=== PATIENT | female | born 1980 | race Caucasian/White ===

== ENCOUNTER 2022-07-03 11:05 | Inpatient (IN) | payer BC, MEDICAID, OTHER ==
[2022-07-03] MEDS ORDERED: LORazepam 2 MG/ML 1ML VIAL IM STA (11:09)
[2022-07-03] MEDS ORDERED: HALOPERIDOL 5MG/ML 1ML VIAL IM ONE (11:10)
[2022-07-03] MEDS ORDERED: diphenhydrAMINE 50MG/ML VIAL IM ONE (11:10)
[2022-07-03 14:09] LABS: AMPHETAMINES LEVEL URINE NEGATIVE (NEGATIVE); BENZODIAZEPINES URINE NEGATIVE (NEGATIVE)
[2022-07-03 14:10] LABS: BARBITURATES URINE NEGATIVE (NEGATIVE); CANNABINOIDS URINE NEGATIVE (NEGATIVE); COCAINE METABOLITE URINE NEGATIVE (NEGATIVE); METHADONE URINE NEGATIVE (NEGATIVE); OPIATES URINE NEGATIVE (NEGATIVE); PHENCYCLIDINE URINE NEGATIVE (NEGATIVE)
[2022-07-03 14:37] LABS: HEMATOCRIT 38.2 % (36.0-47.0); HEMOGLOBIN 11.2 g/dl (12.0-15.5); MEAN CORPUSCULAR HEMOGLOBIN 21.6 pg (27.0-33.0); MEAN CORPUSCULAR HGB CONC 29.3 g/dl (32.0-36.5); MEAN CORPUSCULAR VOLUME 73.7 fl (80.0-96.0); PLATELET COUNT, AUTOMATED 146 10^3/uL (150-450); RED BLOOD COUNT 5.18 10^6/uL (4.00-5.40); WHITE BLOOD COUNT 4.9 10^3/uL (4.0-10.0)
[2022-07-03 15:03] LABS: ETHYL ALCOHOL (ETHANOL) < 0.003 % (0.000-0.010)
[2022-07-03 15:05] LABS: ACETAMINOPHEN LEVEL < 2.0 UG/ML (10.0-20.0); SALICYLATE LEVEL < 3.0 MG/DL (<30)
[2022-07-03 15:08] LABS: ALBUMIN 3.8 G/DL (3.2-5.2); ALKALINE PHOSPHATASE 54 U/L (46-116); ALT/SGPT 11 U/L (7.0-40); AST/SGOT 32 U/L (<34); BILIRUBIN,DIRECT 0.2 MG/DL (<0.4); BILIRUBIN,TOTAL 0.6 MG/DL (0.3-1.2); BLOOD UREA NITROGEN 7 MG/DL (9-23); CALCIUM LEVEL 9.1 MG/DL (8.5-10.1); CARBON DIOXIDE LEVEL 26 MMOL/L (20-31); CHLORIDE LEVEL 108 MMOL/L (98-107); CREATININE FOR GFR 0.71 MG/DL (0.55-1.30); GLOMERULAR FILTRATION RATE > 60.0 (>58); GLUCOSE, FASTING 77 MG/DL (60-100); POTASSIUM SERUM 4.7 MMOL/L (3.5-5.1); SODIUM LEVEL 141 MMOL/L (136-145); THYROID STIMULATING HORMONE 1.469 uIU/ML (0.55-4.78); TOTAL PROTEIN 6.6 G/DL (5.7-8.2)
[2022-07-04] MEDS ORDERED: OLANZapine ORAL DISINTEGRATING TAB 5MG PO ONE (17:05)
[2022-07-04] MEDS ORDERED: ARIP1TAB10 PO (20:26)
[2022-07-04] MEDS ORDERED: ALBU8.5H INH (20:27)
[2022-07-04] MEDS ORDERED: HOME MED LIST COMPLETE! XX SCH (20:30)
[2022-07-04] MEDS ORDERED: med rec comment (20:30)
[2022-07-05] MEDS: NICOTINE 21MG/24HR 1 EA TRANSDERMAL TD SCH (09:00)
[2022-07-05 09:56] LABS: HCG, SERUM QUALITATIVE NEGATIVE (NEGATIVE)
[2022-07-05] MEDS ORDERED: ALBUTEROL 90 MCG/ACT 8GM HFA INHALER INH PRN (12:10)
[2022-07-05] MEDS ORDERED: MOM 30ML SUSPENSION UDC PO PRN (12:10)
[2022-07-05] MEDS ORDERED: MAALOX 30 ML SUSP *UDC PO PRN (12:10)
[2022-07-05] MEDS ORDERED: IBUPROFEN 400MG TAB PO PRN (12:10)
[2022-07-05] MEDS ORDERED: traZODone 50 MG TAB PO PRN (12:10)
[2022-07-05 13:51] VITALS: BP 105/63
[2022-07-06] MEDS: NICOTINE 21MG/24HR 1 EA TRANSDERMAL TD SCH (09:00)
[2022-07-06] MEDS: ARIPiprazole 10 MG TAB PO SCH (09:00)
[2022-07-07] MEDS ORDERED: HALOPERIDOL 5MG/ML 1ML VIAL IM STA (08:45)
[2022-07-07] MEDS ORDERED: LORazepam 2 MG/ML 1ML VIAL IM STA (08:45)
[2022-07-07] MEDS ORDERED: diphenhydrAMINE 50MG/ML VIAL IM STA (08:45)
[2022-07-07] MEDS: NICOTINE 21MG/24HR 1 EA TRANSDERMAL TD SCH (09:00)
[2022-07-07] MEDS: ARIPiprazole 10 MG TAB PO SCH (09:00)
[2022-07-08] MEDS: NICOTINE 21MG/24HR 1 EA TRANSDERMAL TD SCH (09:00)
[2022-07-08] MEDS: ARIPiprazole 10 MG TAB PO SCH (09:00)
[2022-07-08] MEDS: LORazepam 1 MG TAB PO PRN (16:32)
[2022-07-09] MEDS: LORazepam 1 MG TAB PO PRN ×2 (08:30→14:28)
[2022-07-09] MEDS: ARIPiprazole 10 MG TAB PO SCH (09:00)
[2022-07-09] MEDS: NICOTINE 21MG/24HR 1 EA TRANSDERMAL TD SCH (09:00)
[2022-07-09] MEDS: CETIRIZINE (ZyrTEC) 10 MG TAB PO ONE ×2 (10:00→12:28)
[2022-07-09 15:53] VITALS: BP 109/70
[2022-07-10] VITALS (8 sets, daily range): BP systolic 85–103; BP diastolic 48–56
[2022-07-10] MEDS: diphenhydrAMINE 25MG CAP PO PRN (05:24)
[2022-07-10] MEDS: NICOTINE 21MG/24HR 1 EA TRANSDERMAL TD SCH (09:00)
[2022-07-10] MEDS: ARIPiprazole 10 MG TAB PO SCH (09:00)
[2022-07-10] MEDS ORDERED: LORazepam 2 MG/ML 1ML VIAL IM STA (09:46)
[2022-07-10] MEDS ORDERED: HALOPERIDOL 5MG/ML 1ML VIAL IM STA (09:46)
[2022-07-10] MEDS ORDERED: diphenhydrAMINE 50MG/ML VIAL IM STA (09:46)
[2022-07-11] MEDS: ARIPiprazole 10 MG TAB PO SCH (09:00)
[2022-07-11] MEDS ORDERED: ARIPiprazole MONOHYDRATE 400 MG INJ (ABILIFY)(FREE PSY INPT ONLY) IM SCH (09:00)
[2022-07-11] MEDS: NICOTINE 21MG/24HR 1 EA TRANSDERMAL TD SCH (09:00)
[2022-07-11] MEDS: LORazepam 1 MG TAB PO PRN ×2 (09:39→15:42)
[2022-07-11 18:20] VITALS: BP 99/61
[2022-07-12] MEDS: LORazepam 1 MG TAB PO PRN ×2 (01:48→09:32)
[2022-07-12 06:22] VITALS: BP 92/51
[2022-07-12] MEDS: NICOTINE 21MG/24HR 1 EA TRANSDERMAL TD SCH (09:00)
[2022-07-12] MEDS: diphenhydrAMINE 25MG CAP PO PRN (09:32)
[2022-07-12] MEDS: ARIPiprazole 10 MG TAB PO SCH (09:32)
[2022-07-12 09:44] LABS: HEMATOCRIT 36.7 % (36.0-47.0); MEAN CORPUSCULAR HEMOGLOBIN 22.1 pg (27.0-33.0); MEAN CORPUSCULAR VOLUME 73.8 fl (80.0-96.0); PLATELET COUNT, AUTOMATED 131 10^3/uL (150-450); RED BLOOD COUNT 4.97 10^6/uL (4.00-5.40); WHITE BLOOD COUNT 3.9 10^3/uL (4.0-10.0)
[2022-07-12 10:01] LABS: ERYTHROCYTE SEDIMENTATION RATE 3 mm/hr (0-20)
[2022-07-12 10:08] LABS: C REACTIVE PROTEIN QUANTITATIV < 0.40 MG/DL (<1.0)
[2022-07-12 10:12] LABS: ALBUMIN 3.4 G/DL (3.2-5.2); ALKALINE PHOSPHATASE 48 U/L (46-116); ALT/SGPT < 9 U/L (7.0-40); AST/SGOT 12 U/L (<34); BILIRUBIN,TOTAL 0.4 MG/DL (0.3-1.2); BLOOD UREA NITROGEN 12 MG/DL (9-23); CALCIUM LEVEL 8.5 MG/DL (8.5-10.1); CARBON DIOXIDE LEVEL 26 MMOL/L (20-31); CHLORIDE LEVEL 107 MMOL/L (98-107); CREATININE FOR GFR 0.73 MG/DL (0.55-1.30); GLOMERULAR FILTRATION RATE > 60.0 (>58); GLUCOSE, FASTING 101 MG/DL (60-100); POTASSIUM SERUM 4.1 MMOL/L (3.5-5.1); SODIUM LEVEL 140 MMOL/L (136-145)
[2022-07-12] MEDS ORDERED: diphenhydrAMINE CREAM 30GM TOP PRN (11:05)
[2022-07-12] MEDS: HYDROCORTISONE 1% CREAM 30GM TOP SCH ×2 (12:36→21:00)
[2022-07-12] MEDS: LORazepam 2 MG TAB PO PRN (16:03)
[2022-07-12 17:29] VITALS: BP 105/63
[2022-07-13] MEDS: LORazepam 2 MG TAB PO PRN ×2 (03:12→11:26)
[2022-07-13 06:41] VITALS: BP 98/55
[2022-07-13] MEDS: HYDROCORTISONE 1% CREAM 30GM TOP SCH ×3 (09:00→21:36)
[2022-07-13] MEDS: NICOTINE 21MG/24HR 1 EA TRANSDERMAL TD SCH (09:00)
[2022-07-13] MEDS ORDERED: ABIL400I IM (09:55)
[2022-07-13] MEDS ORDERED: HYDR1CR TOP (09:55)
[2022-07-14] MEDS: LORazepam 2 MG TAB PO PRN (05:07)
[2022-07-14 06:30] VITALS: BP 99/52
[2022-07-14] MEDS: NICOTINE 21MG/24HR 1 EA TRANSDERMAL TD SCH (08:09)
[2022-07-14] MEDS: HYDROCORTISONE 1% CREAM 30GM TOP SCH (08:12)
== END 2022-07-14 12:00 | disposition home or self-care (01) | DRG 753 ==
LOC: M ED 11:05 → M ED INP 07-05 12:09 → M PSY 07-05 13:47
PROVIDERS: ADMIT Student in an Organized Health Care Education/Training Program; ATTEND Psychiatry & Neurology Psychiatry
DX: F31.10 Bipolar disorder, current episode manic without psychotic features, unspecified (principal); D69.6 Thrombocytopenia, unspecified; Z78.1 Physical restraint status; Z65.3 Problems related to other legal circumstances; B35.1 Tinea unguium; R21 Rash and other nonspecific skin eruption; Z79.899 Other long term (current) drug therapy; Z20.822 Contact with and (suspected) exposure to COVID-19; Z91.040 Latex allergy status

== ENCOUNTER → 2022-08-25 | Outpatient (CLI) | payer MEDICAID ==
[~2022-08-25] MED LIST: ABIL400I IM; ALBU8.5H INH; ARIP1TAB10 PO; BENZ0.5T23 PO; CVS1CRE56 TOP; DEPA1TAB3 PO; DEPA250T32 PO; FERR325T3 PO; HALO5TAB33 PO; HYDR1CR TOP; med rec comment
== END ==
LOC: M OUTALCOH 07:36
PROVIDERS: ATTEND Psychiatry & Neurology Psychiatry
DX: F10.10 Alcohol abuse, uncomplicated (principal)

== ENCOUNTER → 2022-10-04 | Outpatient (RCR) | payer MEDICAID ==
[~2022-10-04] MED LIST changes: +BENZ0.5T2 PO; -BENZ0.5T23 PO
== END ==
LOC: M OUTALCOH 09-06 10:47
PROVIDERS: ATTEND Psychiatry & Neurology Psychiatry
DX: F10.10 Alcohol abuse, uncomplicated (principal); F17.200 Nicotine dependence, unspecified, uncomplicated

== ENCOUNTER 2022-10-18 10:32 | Outpatient (RCR) | payer MEDICAID | END 2022-11-03 | LOC: M OUTALCOH 10:32 | PROVIDERS: ATTEND Psychiatry & Neurology Psychiatry | DX: F10.10 Alcohol abuse, uncomplicated (principal); F17.200 Nicotine dependence, unspecified, uncomplicated ==

== ENCOUNTER 2022-11-23 10:57 | Outpatient (RCR) | payer MEDICAID | END 2022-12-04 | LOC: M OUTALCOH 10:57 | PROVIDERS: ATTEND Psychiatry & Neurology Psychiatry | DX: F10.10 Alcohol abuse, uncomplicated (principal); F17.200 Nicotine dependence, unspecified, uncomplicated ==

== ENCOUNTER → 2022-12-20 | Outpatient (CLI) | payer MEDICAID, OTHER ==
[2022-12-20 13:51] LABS: BASO % 0.6 % (0.0-1.0); EOS # 0.1 10^3/uL (0.0-0.5); HEMATOCRIT 40.5 % (36.0-47.0); HEMOGLOBIN 12.2 g/dl (12.0-15.5); LYMPH # 1.2 10^3/uL (1.5-5.0); MEAN CORPUSCULAR HEMOGLOBIN 23.9 pg (27.0-33.0); MEAN CORPUSCULAR HGB CONC 30.1 g/dl (32.0-36.5); MEAN CORPUSCULAR VOLUME 79.4 fl (80.0-96.0); MONO # 0.5 10^3/uL (0.0-0.8); MONO % 9.6 % (2.0-8.0); NEUTROPHILS # 3.2 10^3/uL (1.5-8.5); NEUTROPHILS % 64.6 % (36.0-66.0); PLATELET COUNT, AUTOMATED 177 10^3/uL (150-450)
[2022-12-20 14:16] LABS: VALPROIC ACID (DEPAKOTE) 59.3 UG/ML (50.0-100.0)
[2022-12-20 14:17] LABS: ALBUMIN 3.7 G/DL (3.2-5.2); ALKALINE PHOSPHATASE 52 U/L (46-116); ALT/SGPT 10 U/L (7.0-40); AST/SGOT < 8 U/L (<34); BILIRUBIN,TOTAL 0.3 MG/DL (0.3-1.2); BLOOD UREA NITROGEN 15 MG/DL (9-23); CALCIUM LEVEL 9.3 MG/DL (8.5-10.1); CARBON DIOXIDE LEVEL 27 MMOL/L (20-31); CHLORIDE LEVEL 107 MMOL/L (98-107); CHOLESTEROL LEVEL 186 MG/DL (<200); CHOLESTEROL RISK RATIO 2.38 (<5); CREATININE FOR GFR 0.72 MG/DL (0.55-1.30); GLOMERULAR FILTRATION RATE > 60.0 (>58); GLUCOSE, FASTING 78 MG/DL (60-100); HEMOGLOBIN A1c 6.1 % (4.0-6.0); POTASSIUM SERUM 4.6 MMOL/L (3.5-5.1); SODIUM LEVEL 142 MMOL/L (136-145); TOTAL PROTEIN 6.8 G/DL (5.7-8.2); TRIGLYCERIDES LEVEL 30 MG/DL (<150)
[2022-12-20 14:19] LABS: PROLACTIN 15.98 NG/ML
== END ==
LOC: M PLALAB 12:06
PROVIDERS: ATTEND Physician Assistant
DX: Z79.899 Other long term (current) drug therapy (principal)

== ENCOUNTER 2023-01-03 10:42 | Outpatient (RCR) | payer MEDICAID | END 2023-01-04 | LOC: M OUTALCOH 10:42 | PROVIDERS: ATTEND Psychiatry & Neurology Psychiatry | DX: F10.10 Alcohol abuse, uncomplicated (principal); F17.200 Nicotine dependence, unspecified, uncomplicated ==

== ENCOUNTER → 2023-03-01 | Outpatient (CLI) | payer OTHER, MEDICAID ==
[2023-03-01 15:54] LABS: BASO % 0.4 % (0.0-1.0); EOS # 0.1 10^3/uL (0.0-0.5); EOS % 2.8 % (0.0-3.0); HEMATOCRIT 39.2 % (36.0-47.0); HEMOGLOBIN 12.2 g/dl (12.0-15.5); LYMPH # 1.7 10^3/uL (1.5-5.0); LYMPH % 36.9 % (24.0-44.0); MEAN CORPUSCULAR HGB CONC 31.1 g/dl (32.0-36.5); MEAN CORPUSCULAR VOLUME 77.2 fl (80.0-96.0); MONO # 0.4 10^3/uL (0.0-0.8); MONO % 8.7 % (2.0-8.0); NEUTROPHILS # 2.4 10^3/uL (1.5-8.5); PLATELET COUNT, AUTOMATED 193 10^3/uL (150-450); RED BLOOD COUNT 5.08 10^6/uL (4.00-5.40); WHITE BLOOD COUNT 4.6 10^3/uL (4.0-10.0)
[2023-03-01 16:10] LABS: HEMOGLOBIN A1c 4.8 % (4.0-6.0)
[2023-03-01 16:23] LABS: ALBUMIN 3.5 G/DL (3.2-5.2); ALKALINE PHOSPHATASE 55 U/L (46-116); ALT/SGPT 10 U/L (7.0-40); AST/SGOT 9 U/L (<34); BILIRUBIN,TOTAL 0.2 MG/DL (0.3-1.2); BLOOD UREA NITROGEN 11 MG/DL (9-23); CALCIUM LEVEL 8.7 MG/DL (8.5-10.1); CARBON DIOXIDE LEVEL 26 MMOL/L (20-31); CHLORIDE LEVEL 107 MMOL/L (98-107); CHOLESTEROL LEVEL 164 MG/DL (<200); CHOLESTEROL RISK RATIO 2.71 (<5); CREATININE FOR GFR 0.74 MG/DL (0.55-1.30); GLOMERULAR FILTRATION RATE > 60.0 (>58); GLUCOSE, FASTING 86 MG/DL (60-100); HDL CHOLESTEROL 60.4 MG/DL (>40); NON-HDL-C 103.6 MG/DL; POTASSIUM SERUM 4.3 MMOL/L (3.5-5.1); SODIUM LEVEL 141 MMOL/L (136-145); TOTAL PROTEIN 6.5 G/DL (5.7-8.2); TRIGLYCERIDES LEVEL 73 MG/DL (<150)
[2023-03-01 16:26] LABS: FREE T4 1.05 NG/DL (0.89-1.76); THYROID STIMULATING HORMONE 2.076 uIU/ML (0.55-4.78)
[2023-03-01 16:27] LABS: TOTAL 25(OH) VITAMIN D 24.1 NG/ML (20.0-100.0)
== END ==
LOC: M PLALAB 11:56
PROVIDERS: ATTEND Nurse Practitioner Family
DX: Z13.220 Encounter for screening for lipoid disorders (principal); F31.81 Bipolar II disorder; R63.5 Abnormal weight gain; Z13.1 Encounter for screening for diabetes mellitus; E55.9 Vitamin D deficiency, unspecified

== ENCOUNTER → 2023-04-24 | Outpatient (CLI) | payer OTHER ==
[2023-04-24 16:10] LABS: BASO % 0.5 % (0.0-1.0); EOS # 0.1 10^3/uL (0.0-0.5); EOS % 3.1 % (0.0-3.0); HEMATOCRIT 44.2 % (36.0-47.0); HEMOGLOBIN 13.9 g/dl (12.0-15.5); LYMPH # 1.3 10^3/uL (1.5-5.0); LYMPH % 34.7 % (24.0-44.0); MEAN CORPUSCULAR HEMOGLOBIN 25.7 pg (27.0-33.0); MEAN CORPUSCULAR HGB CONC 31.4 g/dl (32.0-36.5); MEAN CORPUSCULAR VOLUME 81.7 fl (80.0-96.0); MONO # 0.3 10^3/uL (0.0-0.8); MONO % 8.5 % (2.0-8.0); NEUTROPHILS % 52.9 % (36.0-66.0); PLATELET COUNT, AUTOMATED 171 10^3/uL (150-450); RED BLOOD COUNT 5.41 10^6/uL (4.00-5.40); WHITE BLOOD COUNT 3.9 10^3/uL (4.0-10.0)
[2023-04-24 16:21] LABS: IRON (FE) 68 UG/DL (50-170); PERCENT SATURATION 18.6 % (13.2-45.0); TOTAL IRON BINDING CAPACITY 365 UG/DL (250-425)
[2023-04-24 16:22] LABS: ALBUMIN 3.7 G/DL (3.2-5.2); ALKALINE PHOSPHATASE 54 U/L (46-116); ALT/SGPT 9 U/L (7.0-40); AST/SGOT < 8 U/L (<34); BILIRUBIN,TOTAL 0.4 MG/DL (0.3-1.2); BLOOD UREA NITROGEN 10 MG/DL (9-23); CALCIUM LEVEL 9.4 MG/DL (8.5-10.1); CARBON DIOXIDE LEVEL 27 MMOL/L (20-31); CHLORIDE LEVEL 109 MMOL/L (98-107); CREATININE FOR GFR 0.81 MG/DL (0.55-1.30); GLOMERULAR FILTRATION RATE > 60.0 (>58); GLUCOSE, FASTING 77 MG/DL (60-100); POTASSIUM SERUM 4.2 MMOL/L (3.5-5.1); SODIUM LEVEL 142 MMOL/L (136-145); TOTAL PROTEIN 6.6 G/DL (5.7-8.2)
[2023-04-24 16:24] LABS: FERRITIN 5.5 NG/ML (7.3-270.7)
== END ==
LOC: M PLALAB 13:23
PROVIDERS: ATTEND Nurse Practitioner Family
DX: B35.1 Tinea unguium (principal); E61.1 Iron deficiency

== ENCOUNTER → 2023-06-14 | Outpatient (CLI) | payer OTHER ==
[2023-06-14 14:17] LABS: IRON (FE) 137 UG/DL (50-170)
[2023-06-14 14:18] LABS: ALBUMIN 3.6 G/DL (3.2-5.2); ALKALINE PHOSPHATASE 59 U/L (46-116); ALT/SGPT 13 U/L (7.0-40); AST/SGOT 11 U/L (<34); BILIRUBIN,DIRECT < 0.1 MG/DL (<0.4); BILIRUBIN,TOTAL 0.2 MG/DL (0.3-1.2); PERCENT SATURATION 39.4 % (13.2-45.0); TOTAL IRON BINDING CAPACITY 348 UG/DL (250-425); TOTAL PROTEIN 6.5 G/DL (5.7-8.2)
[2023-06-14 14:21] LABS: BASO % 0.4 % (0.0-1.0); EOS # 0.1 10^3/uL (0.0-0.5); EOS % 2.2 % (0.0-3.0); HEMATOCRIT 44.7 % (36.0-47.0); HEMOGLOBIN 14.7 g/dl (12.0-15.5); LYMPH # 1.3 10^3/uL (1.5-5.0); LYMPH % 29.4 % (24.0-44.0); MEAN CORPUSCULAR HEMOGLOBIN 27.3 pg (27.0-33.0); MEAN CORPUSCULAR HGB CONC 32.9 g/dl (32.0-36.5); MEAN CORPUSCULAR VOLUME 83.1 fl (80.0-96.0); MONO # 0.4 10^3/uL (0.0-0.8); MONO % 8.5 % (2.0-8.0); NEUTROPHILS # 2.6 10^3/uL (1.5-8.5); NEUTROPHILS % 59.3 % (36.0-66.0); PLATELET COUNT, AUTOMATED 164 10^3/uL (150-450); RED BLOOD COUNT 5.38 10^6/uL (4.00-5.40); WHITE BLOOD COUNT 4.5 10^3/uL (4.0-10.0)
== END ==
LOC: M PLALAB 11:14
PROVIDERS: ATTEND Nurse Practitioner Family
DX: E61.1 Iron deficiency (principal); B35.1 Tinea unguium

== ENCOUNTER → 2023-08-08 | Outpatient (CLI) | payer BC, OTHER | LOC: M WHC 12:03 | PROVIDERS: ATTEND Nurse Practitioner Family | DX: Z12.31 Encounter for screening mammogram for malignant neoplasm of breast (principal) ==